=== PATIENT | female | born 1965 | race Caucasian/White ===

== ENCOUNTER → 2017-08-11 | Outpatient (CLI) | payer OTHER ==
[~2017-08-11] MED LIST: CIPR-278 PO; LEVO100 PO; PANT40TA25 PO; TRIM100 PO
[2017-08-11 12:00] LABS: BASOPHILS % (AUTO) 0.4 % (0.0-2.0); EOSINOPHILS % (AUTO) 1.7 % (1.0-6.0); HEMATOCRIT 41.2 % (36-46); HEMOGLOBIN 14.2 g/dL (12.0-16.0); LYMPHOCYTES # (AUTO) 2.2 K/uL (1.0-4.8); LYMPHOCYTES % (AUTO) 32.1 % (22.0-44.0); MEAN CORPUSCULAR HEMOGLOBIN 28.8 pg (26.0-34.0); MEAN CORPUSCULAR HGB CONC 34.4 G/dL (31.0-37.0); MEAN CORPUSCULAR VOLUME 84 fL (80-100); MONOCYTES # (AUTO) 0.4 K/uL (0.1-1.0); MONOCYTES % (AUTO) 5.3 % (2.0-9.0); NEUTROPHILS # (AUTO) 4.2 K/uL (1.8-7.7); NEUTROPHILS % (AUTO) 60.5 % (40.0-70.0); PLATELET COUNT (AUTO) 301 K/uL (150-450); RED BLOOD CELL COUNT(AUTO) 4.92 MIL/uL (4.00-5.20); RED CELL DISTRIBUTION WIDTH 13.9 % (11.5-14.5); WHITE BLOOD COUNT (AUTO) 6.9 K/uL (4.5-11.0)
[2017-08-11 12:12] LABS: HEMOGLOBIN A1C 5.6 % (4.5-6.2)
[2017-08-11 12:16] LABS: ALANINE AMINOTRANSFERASE 32 U/L (12-78); ANION GAP 7 mmol/L (8-16); ASPARTATE AMINOTRANSFERASE 25 U/L (15-37); BILIRUBIN,TOTAL 0.3 mg/dL (0.1-1.0); CALCIUM, TOTAL 8.9 mg/dL (8.8-10.5); CARBON DIOXIDE 29 mmol/L (22-29); CHLORIDE 100 mmol/L (98-107); CHOL/HDL RATIO 5.7 (3.9-5.7); CREATININE 0.88 mg/dL (0.60-1.30); GLOMERULAR FILTR. RATE CALC > 60 mL/min (>60); POTASSIUM 3.8 mmol/L (3.5-5.1); SODIUM SERUM 136 mmol/L (136-145); TOTAL PROTEIN, SERUM 8.3 g/dL (6.4-8.2); UREA NITROGEN, BLOOD 19 mg/dL (7-18)
[2017-08-11 15:14] LABS: THYROID STIMULATING HORMONE 38.12 uIU/mL (0.36-3.74)
== END | disposition home or self-care (01) ==
LOC: LABPV 10:54
PROVIDERS: ATTEND Internal Medicine
DX: E03.9 Hypothyroidism, unspecified (principal); J30.9 Allergic rhinitis, unspecified; K21.9 Gastro-esophageal reflux disease without esophagitis; Z79.899 Other long term (current) drug therapy
CPT/HCPCS: 83036; 84443; 87338